=== PATIENT | female | born 1965 | race Caucasian/White ===

== ENCOUNTER 2017-07-14 18:52 | Emergency (ER) | payer BC, OTHER ==
[~2017-07-14 18:52] MED LIST: ISOVUE-370 76%-LOCM 1 ML ONE
[2017-07-14] MEDS ORDERED: Famotidine/PF 20 mg/2ml Vial ONE (19:05)
[2017-07-14 19:13] LABS: #Basophils 0.2 thou/uL (0.0-0.2); #Eosinphils 0.4 thou/uL (0.0-0.7); #Lymphocytes 4.4 thou/uL (1.20-3.40); #Monocytes 0.7 thou/uL (0.11-0.59); #Neutrophils 6.8 thou/uL (1.40-6.50); %Basophils 1.3 % (0.0-1.0); %Eosinophils 3.6 % (0.0-10.0); %Monocytes 5.7 % (0.0-10.0); Hematocrit 48.8 % (36.0-47.0); Mean Platelet Volume 7.4 fL (7.4-10.4); Red Blood Cell (RBC) Count 4.72 mill/uL (4.20-5.40); White Blood Cell (WBC) Count 12.5 thou/uL (4.8-10.8)
[2017-07-14 19:33] LABS: ALT (SGPT) 36 U/L (8-55); AST (SGOT) 38 U/L (5-34); Alkaline Phosphatase 94 U/L (40-150); Anion Gap 14 mmol/L (10-20); BUN (Urea Nitrogen) 11 mg/dL (9.8-20.1); Bilirubin, Total 0.3 mg/dL (0.2-1.2); CK (CPK) 57 U/L (29-168); Calc. Creatinine Clearance 0 mL/min (70-130); Calcium 9.6 mg/dL (7.8-10.44); Carbon Dioxide 29 mmol/L (22-29); Chloride 102 mmol/L (98-107); Estimated GFR-MDRD 88; Globulin 3.1 g/dL (2.4-3.5); Protein, Total 7.4 g/dL (6.0-8.3)
[2017-07-14 19:43] LABS: Troponin I Less than 0.010 ng/mL (< 0.028)
[2017-07-14 19:44] LABS: Sodium 140 mmol/L (135-148)
[2017-07-14 19:45] LABS: Modified Allen's Test POSITIVE; Vent NO
[2017-07-14] MEDS ORDERED: Ketorolac Tromethamine 30 MG/ML VIAL ONE (21:43)
--- NOTE | 2017-07-14 21:47 | RAD ---
PORTABLE CHEST: 07/14/17 HISTORY: Chest pain. Heart is mildly enlarged. There is mild vascular engorgement. Some interstitial prominence suggests m ild interstitial edema. No confluent alveolar process. No effusion. IMPRESSION: Cardiomegaly with mild vascular engorgement. POS: [facility]
[2017-07-14] MEDS ORDERED: Acetaminophen 500 MG TAB ONE (22:26)
--- NOTE | 2017-07-14 22:41 | CT ---
CT ANGIO OF CHEST WITH CONTRAST: 07/14/17 Multiple axial tomograms obtained through the chest with pulmonary angio protocol with multiplanar re constructions and 3D postprocessing. HISTORY: Chest pain. Hypoxia. Pulmonary arteries are well opacified. No evidence of pulmonary embolus identified. The thoracic aorta shows no evidence of dissection. Lung smith show streaky atelectasis in the left mid lung field which extends to the peripheral pleur al surface. No focal consolidation or effusion. Mediastinum unremarkable. Upper abdomen unremarkable. IMPRESSION: 1. No evidence of pulmonary embolus. 2. No acute lung process. There is linear atelectasis in the left mid lung field. POS: [facility]
--- NOTE | 2017-08-15 16:47 | EKG ---
Test Reason : Blood Pressure : / mmHG Vent. Rate : 085 BPM Atrial Rate : 085 BPM P-R Int : 152 ms QRS Dur : 082 ms QT Int : 368 ms P-R-T Axes : 035 031 020 degrees QTc Int : 437 ms Normal sinus rhythm Nonspecific T wave abnormality Abnormal ECG Confirmed by ABELINO ARNOLD, JORGE ([id number]), food editor JASS JOE ([id number]) on 08/15/2017 4:46:57 PM Referred By: Confirmed By:JORGE ROCA MD
== END 2017-07-14 22:36 | disposition home or self-care (01) ==
LOC: ERS 18:52
DX: K29.70 Gastritis, unspecified, without bleeding (principal); R06.4 Hyperventilation; E11.9 Type 2 diabetes mellitus without complications; M06.9 Rheumatoid arthritis, unspecified; E11.40 Type 2 diabetes mellitus with diabetic neuropathy, unspecified; F41.9 Anxiety disorder, unspecified; F32.9 Major depressive disorder, single episode, unspecified; Z71.6 Tobacco abuse counseling; F17.210 Nicotine dependence, cigarettes, uncomplicated; Z79.899 Other long term (current) drug therapy
CPT/HCPCS: 36416; 71010; 71275; 80053; 82550; 82553; 82805; 84484; 85025; 93005; 94760; 96374; 96375; 99406; J1885; S0028

== ENCOUNTER 2017-10-28 12:50 | Outpatient (CLI) | payer OTHER ==
--- NOTE | 2017-10-28 14:52 | MRI ---
MRI LUMBAR SPINE WITHOUT CONTRAST: COMPARISON: 04/18/16. HISTORY: Lumbar radiculopathy. TECHNIQUE: MRI lumbar spine is performed without intravenous Gadolinium administration. Multisequential, multip lanar imaging is performed. FINDINGS: Appropriate T1 marrow signal intensity of the lumbar vertebrae. Lumbar spine vertebral height is manuel ntained. No fracture. Stable Schmorl's node along the superior end plate of L2. No significant STI R hyperintensity to suggest vertebral body edema or ligamentous injury. Symmetric signal intensity of the psoas muscles. Appropriate signal intensity in visualized solid or kaitlynn. Conus medullaris terminates at the superior aspect of L2. T12-L1: No significant central canal stenosis or foraminal narrowing. L1-L2: No significant central canal stenosis or foraminal narrowing. L2-L3: No significant central canal stenosis or foraminal narrowing. L3-L4: No significant central canal stenosis or foraminal narrowing. L4-L5: No significant posterior disk abnormality. No significant central canal stenosis. Minimal a mount of disk material in the right neural foramen. Minimal right foraminal stenosis. The left neur al foramen is unremarkable. L5-S1: Desiccation with mild loss of disk space height. There is a right subarticular and right for aminal disk protrusion with disk material abutting but not completely obscuring the traversing right S1 nerve root. Mild bilateral foraminal narrowing. Degenerative changes at L5-S1 are similar to the previous examination. There is a stable small focus of disk material in the right neural foramen. Stable bilateral pars defects. IMPRESSION: Degenerative disk disease at L5-S1, unchanged. POS: [facility]
== END 2017-10-28 12:51 | disposition home or self-care (01) ==
LOC: MRI 12:50
PROVIDERS: ATTEND Family Medicine
DX: M51.17 Intervertebral disc disorders with radiculopathy, lumbosacral region (principal)
CPT/HCPCS: 72148

== ENCOUNTER 2017-12-14 19:35 | Emergency (ER) | payer OTHER ==
[2017-12-14] MEDS ORDERED: Ketorolac Tromethamine 30 MG/ML VIAL ONE (20:19)
[2017-12-14] MEDS ORDERED: Morphine 10 MG/ML VIAL ONE (20:19)
== END 2017-12-14 21:05 | disposition home or self-care (01) ==
LOC: ERS 19:35
DX: M54.5 Low back pain (principal); G89.29 Other chronic pain; J44.9 Chronic obstructive pulmonary disease, unspecified; G43.909 Migraine, unspecified, not intractable, without status migrainosus; M32.9 Systemic lupus erythematosus, unspecified; M06.9 Rheumatoid arthritis, unspecified; E11.40 Type 2 diabetes mellitus with diabetic neuropathy, unspecified; F41.9 Anxiety disorder, unspecified; F32.9 Major depressive disorder, single episode, unspecified; F17.210 Nicotine dependence, cigarettes, uncomplicated; Z79.899 Other long term (current) drug therapy
CPT/HCPCS: 96372; J1885; J2270

== ENCOUNTER 2018-01-14 15:54 | Outpatient (CLI) | payer OTHER ==
--- NOTE | 2018-01-14 17:44 | RAD ---
3 VIEWS RIGHT FOOT: Date: 01/14/18 INDICATION: History of inflammatory arthritis. COMPARISON: None. FINDINGS: There is mild scattered IP osteoarthrosis of the right foot. There is mild great toe MTP osteoarthros is. Accessory ossicle seen adjacent to the cuboid. No active periarticular erosive change is grossly evident. Enthesopathic change seen off the calcaneus. Lisfranc alignment is preserved. Soft tissues a re normal appearing. IMPRESSION: Scattered osteoarthrosis of the right foot. POS: [facility]
--- NOTE | 2018-01-14 17:45 | RAD ---
2 VIEWS RIGHT HIP: Date: 01/14/18 INDICATION: History of inflammatory arthritis. COMPARISON: None. FINDINGS: There is mild degenerative arthrosis of the right hip. Mild enthesopathic changes seen off the right greater trochanter. Mild degenerative change seen involving the symphysis. Enthesopathic change seen off the anterior pelvis. IMPRESSION: 1. No acute osseous abnormality. 2. Mild degenerative arthrosis of the right hip. POS: [facility]
--- NOTE | 2018-01-14 17:46 | RAD ---
2 VIEWS LEFT HIP: Date: 01/14/18 INDICATION: History of inflammatory arthritis. COMPARISON: None. FINDINGS: There is mild enthesopathic change off the pelvis and greater trochanter. There is mild degenerative arthrosis left hip. No acute fracture or subluxation is evident. IMPRESSION: Mild osteoarthrosis left hip. POS: [facility]
--- NOTE | 2018-01-14 17:46 | RAD ---
LEFT FOOT THREE VIEWS: INDICATIONS: History of inflammatory arthritis. COMPARISON: None. FINDINGS: No active periarticular or erosive change is evident. There is scattered IP osteoarthrosis. There i s mild great toe MTP osteoarthrosis. Enthesopathic change is seen off the calcaneus. Lisfranc align ment is preserved. Soft tissues are normal appearing. IMPRESSION: Scattered osteoarthrosis of the left foot. POS: [facility]
--- NOTE | 2018-01-14 17:48 | RAD ---
CHEST TWO VIEWS: 01/14/2018 PROVIDED CLINICAL HISTORY: Inflammatory arthritis. COMPARISON: 07/14/2017 FINDINGS: The cardiac silhouette remains enlarged. There is prominence of the pulmonary vasculature and pulmon vaishali interstitium, similar to the prior study. No focal consolidation, pleural fluid, or pneumothorax apparent. IMPRESSION: Cardiomegaly and findings suggesting pulmonary vascular congestion. POS: [facility]
--- NOTE | 2018-01-14 17:48 | RAD ---
LEFT HAND 3 VIEWS: Date: 01/14/18 PROVIDED CLINICAL HISTORY: Inflammatory arthritis. FINDINGS: There is no evidence for fracture or other acute osseous abnormality. Alignment appears anatomic. Pati nt spaces appear preserved. No erosive changes are evident. Bone mineralization appears preserved. So ft tissues appear radiographically unremarkable. IMPRESSION: No radiographic evidence for inflammatory arthritis. POS: [facility]
--- NOTE | 2018-01-14 17:49 | RAD ---
3 VIEWS RIGHT HAND: Date: 01/14/18 INDICATION: History of inflammatory arthritis. COMPARISON: Right thumb radiographs dated 10/16/15. FINDINGS: There is mild first CMC osteoarthrosis that is stable. There is scattered IP osteoarthritic change. N o active periarticular erosive change is evident. Carpal alignment appears within normal limits. Soft tissues are normal appearing. Bone mineralization appears within normal limits. IMPRESSION: Scattered osteoarthrosis of the right hand. POS: [facility]
--- NOTE | 2018-01-14 17:49 | RAD ---
RIGHT KNEE THREE VIEWS: INDICATIONS: History of inflammatory arthritis. COMPARISON: None. FINDINGS: There are marginal osteophytes affecting all major compartments. There is mild joint capsular disten tion. There is mild suggestion of medial femorotibial joint compartmental narrowing. No acute fract ure or subluxation is evident. No definite active periarticular erosive change is evident. IMPRESSION: Moderate osteoarthrosis of the right knee. POS: [facility]
--- NOTE | 2018-01-14 17:51 | RAD ---
LEFT KNEE THREE VIEWS: INDICATIONS: History of inflammatory arthritis. COMPARISON: None. FINDINGS: There are moderate sized osteophytes affecting all major compartments of the left knee. There is mil d joint capsular distention. No acute fracture or subluxation is evident. No active periarticular e rosive change is evident. IMPRESSION: Moderate osteoarthrosis of the left knee. POS: [facility]
== END 2018-01-14 15:55 | disposition home or self-care (01) ==
LOC: RAD 15:54
DX: M06.4 Inflammatory polyarthropathy (principal); M17.0 Bilateral primary osteoarthritis of knee; M19.041 Primary osteoarthritis, right hand; M19.072 Primary osteoarthritis, left ankle and foot; M19.071 Primary osteoarthritis, right ankle and foot; M16.0 Bilateral primary osteoarthritis of hip; I51.7 Cardiomegaly
CPT/HCPCS: 71046

== ENCOUNTER 2018-08-05 13:00 | Outpatient (CLI) | payer OTHER ==
--- NOTE | 2018-08-05 14:02 | RAD ---
RIGHT KNEE THREE VIEWS: 08/05/18 HISTORY: Right knee pain. FINDINGS: Mild joint space loss medial compartment. Moderate tricompartmental osteophytosis. Small amount of fl uid distends the suprapatellar bursa. IMPRESSION: Osteoarthritic changes right knee with joint space loss at the medial compartment and a small effusio n. POS: [facility]
--- NOTE | 2018-08-06 08:07 | CT ---
CT CHEST WITH IV CONTRAST: 08/05/18 HISTORY: Lung nodules. COMPARISON: 07/14/17. FINDINGS: Lungs are well inflated. No focal parenchymal mass. No pleural fluid or mediastinal adenopathy. No ev idence of pneumothorax. IMPRESSION: No evidence of lung nodules or other significant abnormalities. POS: [facility]
== END 2018-08-05 13:01 | disposition home or self-care (01) ==
LOC: BICCT 13:00
PROVIDERS: ATTEND Family Medicine
DX: M25.561 Pain in right knee (principal); R91.8 Other nonspecific abnormal finding of lung field; M17.11 Unilateral primary osteoarthritis, right knee; M25.461 Effusion, right knee; M25.861 Other specified joint disorders, right knee
CPT/HCPCS: 71260

== ENCOUNTER 2019-01-23 11:09 | Emergency (ER) | payer OTHER ==
[2019-01-23] MEDS ORDERED: HYDROcodone/Acetaminophen 5/325 mg Tablet ONE (11:51)
== END 2019-01-23 11:58 | disposition home or self-care (01) ==
LOC: ERS 11:09
DX: L03.211 Cellulitis of face (principal); J44.9 Chronic obstructive pulmonary disease, unspecified; E11.9 Type 2 diabetes mellitus without complications; F41.9 Anxiety disorder, unspecified; F32.9 Major depressive disorder, single episode, unspecified; F17.210 Nicotine dependence, cigarettes, uncomplicated; Z79.899 Other long term (current) drug therapy
CPT/HCPCS: 99283

== ENCOUNTER 2019-08-28 15:07 | Inpatient (IN) | payer OTHER ==
[~2019-08-28 15:07] MED LIST changes: -ISOVUE-370 76%-LOCM 1 ML ONE; +Iopamidol-370 76% 500 ML 1 ML ONE
[2019-08-28 15:28] LABS: #Lymphocytes 2.3 thou/uL (1.20-3.40); #Neutrophils 6.4 thou/uL (1.40-6.50); %Basophils 0.5 % (0.0-1.0); %Eosinophils 0.1 % (0.0-10.0); %Lymphocytes 23.9 % (21.0-51.0); %Monocytes 10.1 % (0.0-10.0); %Neutrophils 65.4 % (42.0-75.0); Hemoglobin 14.2 g/dL (12.0-16.0); Mean Corpuscular HGB CONC 33.4 g/dL (32.0-36.0); Mean Corpuscular Hemoglobin 33.8 pg (27.0-31.0); Mean Platelet Volume 9.8 fL (7.4-10.4); Platelet Count 164 thou/uL (130-400); RBC Distribution Width 13.3 % (11.5-14.5); Red Blood Cell (RBC) Count 4.21 mill/uL (4.20-5.40); White Blood Cell (WBC) Count 9.8 thou/uL (4.8-10.8)
[2019-08-28] MEDS ORDERED: Magnesium 2 GM/50 ML BAG (IN WATER) ONE (15:38)
[2019-08-28] MEDS ORDERED: methylPREDNISolone Sod Succ/PF 125 MG/2 ML VIAL ONE (15:38)
[2019-08-28 15:50] LABS: ALT (SGPT) 59 U/L (8-55); AST (SGOT) 56 U/L (5-34); Albumin 3.8 g/dL (3.5-5.0); Alkaline Phosphatase 89 U/L (40-110); Anion Gap 13 mmol/L (10-20); BUN (Urea Nitrogen) 6 mg/dL (9.8-20.1); Bilirubin, Total 0.7 mg/dL (0.2-1.2); CK (CPK) 542 U/L (29-168); Calc. Creatinine Clearance 0 mL/min (70-130); Calcium 8.3 mg/dL (7.8-10.44); Carbon Dioxide 29 mmol/L (22-29); Chloride 100 mmol/L (98-107); Estimated GFR-MDRD Greater than 90; Glucose 131 mg/dL (70-105); Potassium 3.2 mmol/L (3.5-5.1); Protein, Total 6.8 g/dL (6.0-8.3); Sodium 139 mmol/L (136-145)
--- NOTE | 2019-08-28 15:54 | RAD ---
XR Chest 1 View Portable HISTORY: Shortness of breath COMPARISON: 07/14/2017 FINDINGS: The heart size is enlarged. The lungs are expanded with pulmonary vascular congestion and p atchy infiltrates. No pneumothoraces or large effusions are seen.
[2019-08-28 16:06] LABS: Magnesium 1.5 mg/dL (1.6-2.6)
[2019-08-28 17:04] LABS: Bacteria/HPF 1+ HPF (None Seen); Bilirubin 1+ (Negative); Blood, Urine Trace (Negative); Clarity Clear (Clear); Glucose, Urine (Dipstick) Normal (Negative); Leukocyte Negative Leu/uL (Negative); Nitrite Negative (Negative); Protein, Urine (Dipstick) 300 mg/dL (Neg-Trace); RBC/HPF 0-3 HPF (0-3); Squamous Epithelial 0-3 HPF (0-3); Urobilinogen Greater than 12 mg/dL (Less than 2); WBC/HPF 0-3 HPF (0-3)
[2019-08-28] MEDS ORDERED: Oseltamivir 75 MG CAP PO SCH (18:00)
[2019-08-28] MEDS ORDERED: Acetaminophen 500 MG TAB ONE (18:06)
--- NOTE | 2019-08-28 18:12 | CT ---
CT ANGIO CHEST PERFORMED WITH INTRAVENOUS CONTRAST ENHANCEMENT AND 3D RECONSTRUCTIONS: Date: 08/28/19 HISTORY: Flu-like symptoms. COMPARISON: Chest x-ray done earlier today. FINDINGS: Patchy bilateral ground-glass infiltrates are seen. Appearance is more suggestive of a viral-type pne umonitis than pulmonary edema. There are no pleural effusions seen. No significant axillary or hilar adenopathy. There are some slightly prominent prevascular nodes, non specific, and these may be reactive. The thoracic aorta is normal in caliber. There is fairly good pulmonary artery opacification and no C T evidence for pulmonary embolus. Gallbladder has been removed. Visualized liver parenchyma shows no focal findings. IMPRESSION: 1. No CT evidence of pulmonary embolus. 2. Patchy ground-glass infiltrates, most suggestive of a diffuse viral-type pneumonitis. POS: [facility]
[2019-08-28] MEDS ORDERED: Ondansetron PF 4 MG/2 ML Vial ONE (19:37)
[2019-08-28 19:58] VITALS: BMI 48.4
[2019-08-28] MEDS ORDERED: Lactated Ringer's 1,000 ML IV SCH (20:30)
[2019-08-29] MEDS ORDERED: Acetaminophen/Codeine 30-300mg Tablet PO PRN (01:44)
[2019-08-29] MEDS ORDERED: Benzonatate 100 MG CAP PO PRN ×2 (01:44→03:44)
[2019-08-29] MEDS ORDERED: HumaLOG 300 UNITS/3 ML VIAL SC PRN (03:44)
[2019-08-29] MEDS ORDERED: Ondansetron ODT 4 MG TAB PO PRN (03:44)
[2019-08-29] MEDS ORDERED: Acetaminophen 325 MG TAB PO PRN (03:44)
[2019-08-29] MEDS ORDERED: Dextrose 50% Abboject 50 ML SYRINGE SLOW IVP PRN (03:44)
[2019-08-29] MEDS ORDERED: Ondansetron PF 4 MG/2 ML Vial IVP PRN (03:44)
[2019-08-29] MEDS ORDERED: Dextrose 5% in Water 1,000 ML IV PRN (03:44)
[2019-08-29] MEDS ORDERED: Azithromycin 500 MG in Sodium Chloride 0.9% 250 ML 250 ML IVPB SCH (04:00)
[2019-08-29] MEDS: HumaLOG 300 UNITS/3 ML VIAL SC PRN ×2 (04:15→17:41)
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
[2019-08-29] MEDS: Enoxaparin Sodium 40 MG/0.4 ML SYRINGE SC SCH (07:52)
[2019-08-29] MEDS ORDERED: Loperamide HCl 2 MG CAP PO PRN (08:13)
[2019-08-29] MEDS ORDERED: Sodium Chloride 0.65% Nasal 44 ML BOT EA NARE PRN (08:13)
[2019-08-29] MEDS ORDERED: Diabetic Tussin 200 MG/10 ML UDCUP PO PRN (08:13)
[2019-08-29] MEDS ORDERED: Zolpidem Tartrate 5 MG TAB PO PRN (08:13)
[2019-08-29] MEDS ORDERED: hydrALAZINE 20 MG/ML VIAL SLOW IVP PRN (08:13)
[2019-08-29] MEDS ORDERED: Senokot S 8.6-50 MG TAB PO PRN (08:13)
[2019-08-29] MEDS ORDERED: Artificial Tears 18 DROP/0.9 ML EA EYE PRN (08:13)
[2019-08-29] MEDS ORDERED: Loratadine 10 MG TAB PO PRN (08:13)
[2019-08-29] MEDS ORDERED: Cepastat Lozenges 1 LOZ PO PRN (08:13)
[2019-08-29] MEDS ORDERED: Bisacodyl 10 MG SUPP PR PRN (08:13)
[2019-08-29] MEDS ORDERED: Magnesium Sulfate 3 GM in Sodium Chloride 0.9% 100 ML IVPB SCH (08:15)
[2019-08-29] MEDS ORDERED: Potassium Chloride 20 MEQ TAB PO SCH (08:15)
[2019-08-29] MEDS ORDERED: Cyclobenzaprine 10 MG TAB PO SCH (09:00)
[2019-08-29] MEDS ORDERED: Gabapentin 400 MG CAP PO SCH (09:00)
[2019-08-29] MEDS ORDERED: Folic Acid 1 MG TAB PO SCH (09:00)
[2019-08-29] MEDS ORDERED: Prevnar 13-Val Conj/PF 0.5 ML SYRINGE IM ONE (09:00)
--- NOTE | 2019-08-29 10:53 | PDOC.HOSPP ---
- Subjective Encounter Date: 08/29/19 Encounter Time: 09:00 Subjective: pt has dyspnea, hypoxia, cough, feels weak, Patient seen and examined. No overnight events - Objective Vital Signs & Weight: Vital Signs (12 hours) Temp Pulse Resp BP Pulse Ox 08/29/19 10:22 91 16 92 L 08/29/19 08:00 98.0 F 87 22 H 163/76 H 100 08/29/19 04:01 98.2 F 88 22 H 107/57 L 91 L 08/29/19 02:28 88 16 95 08/28/19 23:58 98.2 F 88 22 H 143/75 H 91 L Weight Weight 256 lb 4.8 oz Result Diagrams: 08/28/19 15:16 08/28/19 15:16 Additional Labs: Accuchecks 08/29/19 04:01 POC Glucose 236 H Radiology Reviewed by me: Yes Hospitalist ROS - Review of Systems Constitutional: reports: weakness, malaise. denies: fever, chills, sweats, other ENT: denies: ear pain, ear discharge, nose pain, nose discharge, nose congestion , mouth pain, mouth swelling, throat pain, throat swelling, other Respiratory: reports: cough, shortness of breath, SOB with excertion. denies: dry, hemoptysis, pleuritic pain, sputum, wheezing, other Cardiovascular: denies: chest pain, palpitations, orthopnea, paroxysmal noc. dyspnea, edema, light headedness, other Gastrointestinal: denies: nausea, vomiting, abdominal pain, diarrhea, constipation, melena, hematochezia, other Genitourinary: denies: dysuria, frequency, incontinence, hematuria, retention, other Musculoskeletal: denies: neck pain, shoulder pain, arm pain, back pain, hand pain, leg pain, foot pain, other Skin: denies: rash, lesions, susan, bruising, other - Medication Medications: Active Medications Generic Name Dose Route Start Last Admin Trade Name Freq PRN Reason Stop Dose Admin Enoxaparin Sodium 40 mg 08/29/19 09:00 08/29/19 07:52 Lovenox SC 40 mg 0900 EDUARDO Administration Insulin Human Lispro 0 units 08/29/19 03:44 08/29/19 04:15 Humalog SC 4 unit .MODERATE SLIDING SC PRN Administration Moderate Correctional Scale - Exam General Appearance: NAD, awake alert Eye: PERRL, anicteric sclera ENT: normocephalic atraumatic, no oropharyngeal lesions Neck: supple, symmetric, no JVD, no thyromegaly Heart: RRR, no murmur, no gallops, no rubs Respiratory: rales Respiratory - other findings: scattered rales, reduced air entry Gastrointestinal: soft, non-tender, non-distended, normal bowel sounds Gastrointestinal - other findings: obesity+ Extremities: no cyanosis, no clubbing, no edema Skin: normal turgor, no lesions Neurological: no focal deficits Musculoskeletal: normal tone, normal strength Psychiatric: normal affect, normal behavior Hosp A/P (1) Acute respiratory failure with hypoxia Code(s): J96.01 - ACUTE RESPIRATORY FAILURE WITH HYPOXIA Status: Acute (2) Hypokalemia Code(s): E87.6 - HYPOKALEMIA Status: Acute (3) Hypomagnesemia Code(s): E83.42 - HYPOMAGNESEMIA Status: Acute (4) Pneumonia Code(s): J18.9 - PNEUMONIA, UNSPECIFIED ORGANISM Status: Acute (5) Transaminitis Code(s): R74.0 - NONSPEC ELEV OF LEVELS OF TRANSAMNS & LACTIC ACID DEHYDRGNSE Status: Acute (6) Macrocytosis Code(s): D75.89 - OTHER SPECIFIED DISEASES OF BLOOD AND BLOOD-FORMING ORGANS Status: Chronic (7) Morbid obesity with BMI of 45.0-49.9, adult Code(s): E66.01 - MORBID (SEVERE) OBESITY DUE TO EXCESS CALORIES; Z68.42 - BODY MASS INDEX (BMI) 45.0-49.9, ADULT Status: Chronic (8) Rheumatoid arthritis Code(s): M06.9 - RHEUMATOID ARTHRITIS, UNSPECIFIED Status: Chronic (9) SLE (systemic lupus erythematosus) Code(s): M32.9 - SYSTEMIC LUPUS ERYTHEMATOSUS, UNSPECIFIED Status: Chronic - Plan old records reviewed/req, plan discussed w/ family, continue antibiotics, respiratory therapy 08/29/19, will do ABG, will consult pulmonary, add solumedrom 40 mg IV q 8 hourly , change antibiotic to IV levaquin and pharmacy to adjust vancomycin, replace potassium and magnesium, discussed with , monitor oxygen level, add mucinex 600 mg po bid, add duoneb, will closely monitor, medication reviewed.
[2019-08-29 11:31] LABS: Actual Bicarbonate (HCO3a) 25.3 mEq/L (22-28); Base Excess (BEa) 0.1 mEq/L (-2.0 to +3.0); CO2 Tension 42.9 mmHg (35.0-45.0); Calcium, Ionized 1.13 mmol/L (1.12-1.30); Hemoglobin (Hb) 13.7 g/dL (12.0-16.0); Potassium - ABG Lab 3.41 mmol/L (3.70-5.30); pH, Arterial 7.39 (7.35-7.45)
[2019-08-29] MEDS: DULoxetine 30 MG CAP PO SCH ×2 (11:41→21:32)
[2019-08-29] MEDS: Famotidine 20 MG TAB PO SCH ×2 (11:42→21:32)
[2019-08-29 11:50] LABS: ALV-art Gradient -68.105 (0-20); Puncture Site RRA
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
[2019-08-29] MEDS: ALPRAZolam 1 MG TAB PO PRN ×2 (13:10→21:33)
[2019-08-29] MEDS: Vancomycin HCl 1 GM in Premix Bag 1 BAG IVPB SCH (13:11)
[2019-08-29] MEDS: methylPREDNISolone Sod Succ/PF 125 MG/2 ML VIAL IVP SCH ×2 (13:12→21:33)
[2019-08-29] MEDS: guaiFENesin ER 600 MG TAB PO SCH (21:32)
[2019-08-29] MEDS: Doxycycline 100 MG CAP PO SCH (21:32)
[2019-08-29] MEDS: traZODone HCl 50 MG TAB PO SCH (21:32)
[2019-08-29] MEDS: HYDROcodone/Acetaminophen 5/325 mg Tablet PO PRN (21:35)
[2019-08-30] MEDS: Vancomycin HCl 1 GM in Premix Bag 1 BAG IVPB SCH ×2 (00:09→12:11)
[2019-08-30 03:23] LABS: #Lymphocytes 1.4 thou/uL (1.20-3.40); #Monocytes 0.7 thou/uL (0.11-0.59); #Neutrophils 11.7 thou/uL (1.40-6.50); %Basophils 0.2 % (0.0-1.0); %Eosinophils 0.1 % (0.0-10.0); %Lymphocytes 10.3 % (21.0-51.0); %Monocytes 4.8 % (0.0-10.0); %Neutrophils 84.6 % (42.0-75.0); Hemoglobin 13.5 g/dL (12.0-16.0); Mean Corpuscular HGB CONC 33.8 g/dL (32.0-36.0); Mean Corpuscular Hemoglobin 34.4 pg (27.0-31.0); Mean Platelet Volume 9.3 fL (7.4-10.4); Platelet Count 173 thou/uL (130-400); RBC Distribution Width 13.3 % (11.5-14.5); Red Blood Cell (RBC) Count 3.91 mill/uL (4.20-5.40); White Blood Cell (WBC) Count 13.9 thou/uL (4.8-10.8)
[2019-08-30 03:47] LABS: ALT (SGPT) 45 U/L (8-55); AST (SGOT) 43 U/L (5-34); Albumin 3.5 g/dL (3.5-5.0); Alkaline Phosphatase 84 U/L (40-110); Anion Gap 13 mmol/L (10-20); BUN (Urea Nitrogen) 12 mg/dL (9.8-20.1); Bilirubin, Total 0.6 mg/dL (0.2-1.2); Calc. Creatinine Clearance 173 mL/min (70-130); Calcium 8.5 mg/dL (7.8-10.44); Carbon Dioxide 30 mmol/L (22-29); Chloride 101 mmol/L (98-107); Estimated GFR-MDRD 89; Globulin 3.1 g/dL (2.4-3.5); Glucose 178 mg/dL (70-105); Potassium 4.6 mmol/L (3.5-5.1); Protein, Total 6.6 g/dL (6.0-8.3); Sodium 139 mmol/L (136-145)
[2019-08-30] MEDS: methylPREDNISolone Sod Succ/PF 125 MG/2 ML VIAL IVP SCH (05:31)
[2019-08-30] MEDS: HumaLOG 300 UNITS/3 ML VIAL SC PRN ×2 (05:31→17:21)
[2019-08-30] MEDS: Famotidine 20 MG TAB PO SCH ×2 (08:30→20:22)
[2019-08-30] MEDS: Doxycycline 100 MG CAP PO SCH ×2 (08:30→20:22)
[2019-08-30] MEDS: guaiFENesin ER 600 MG TAB PO SCH ×2 (08:30→20:22)
[2019-08-30] MEDS: Enoxaparin Sodium 40 MG/0.4 ML SYRINGE SC SCH (08:30)
[2019-08-30] MEDS: DULoxetine 30 MG CAP PO SCH ×2 (09:00→20:22)
--- NOTE | 2019-08-30 09:21 | PRG ---
DATE OF SERVICE: 08/30/2019 SUBJECTIVE: Su Pelletier, this morning, feels much better, less agitated, less short of breath. OBJECTIVE: VITAL SIGNS: Temperature 97, pulse 67, saturations 93% on BiPAP, blood pressure 124/66. CHEST: Decreased breath sounds. No wheezing. CARDIAC: Normal S1, S2. No gallops. ABDOMEN: No mass. LABORATORY DATA: Lytes are normal. White count 13,000. She is now coughing some yellow sputum. IMPRESSION: Respiratory failure, bilateral bronchopneumonia, community-acquired, baseline immunocompromised, lupus, polymyalgia, rheumatoid arthritis. Continue steroids. Continue antibiotics. Await sputum cultures. Nocturnal BiPAP. We will follow. Job ID: [id number]
--- NOTE | 2019-08-30 09:52 | RAD ---
EXAM: Portable chest PROVIDED CLINICAL HISTORY: Pneumonia COMPARISON: 08/28/2019 FINDINGS: Interval increase in conspicuity of diffuse patchy bilateral airspace disease. Additional significant interval change with respect to the prior examination is not apparent. IMPRESSION: As above.
[2019-08-30] MEDS: HYDROcodone/Acetaminophen 5/325 mg Tablet PO PRN ×2 (12:14→20:23)
--- NOTE | 2019-08-30 15:05 | PQF ---
CLINICAL DOCUMENTATION IMPROVEMENT CLARIFICATION FORM: ICD-10 Updated PLEASE DO AN ADDENDUM TO THE PROGRESS NOTE WITH ANY DOCUMENTATION UPDATES OR ADDITIONS AND CARRY THROUGH TO DC SUMMARY. THANK YOU. DATE: 08/30/19 ATTN : DR. BROOKE Please exercise your independent, professional judgment in responding to the clarification form. Clinical indicators are provided on the bottom of this form for your review Please check appropriate box(es): [ x ] Sepsis due to: (Pna, UTI, gangrenous gall bladder, etc.) [ ] SIRS due to non-infectious process (please specify etiology) [ ] with organ dysfunction [ ] without organ dysfunction [ ] Severe sepsis with acute organ dysfunction of: (Examples: respiratory failure, encephalopathy, acute kidney failure, other) [ ] Septic Shock [ ] Localized infection without sepsis [ ] Other diagnosis [ ] Unable to determine In addition, please specify: Present on Admission (POA): [ x ] Yes [ ] No [ ] Unable to determine For continuity of documentation, please document condition throughout progress notes and discharge summary. Thank You. CLINICAL INDICATORS - SIGNS / SYMPTOMS / LABS / RESULTS AND LOCATION IN MR ER NOTE: "SEPSIS" WBC 08/30: 13.9 TEMP 101.3 (PER ER REPORT) RR 26 RISKS: PNEUMONIA (PROGRESS NOTE 08/29) IMMUNOCOMPROMISED (PROGRESS NOTE 08/30) TREATMENT: IV VANCOMYCIN (ER-PRESENT) IV LEVAQUIN (ER-PRESENT) VIBRAMYCIN (08/29-PRESENT) IV FLUIDS (ER) BLOOD AND URINE CULTURES 08/28 IMCU MONITORING (This form is maintained as a part of the permanent medical record) 2014 [employer]. All Rights Reserved [email or web address] Office: [phone] [facility]
--- NOTE | 2019-08-30 19:53 | PDOC.HOSPP ---
- Subjective Encounter Date: 08/30/19 Encounter Time: 19:45 Subjective: f/u for sepsis due to PNA on current Doxycycline/Levaquin/Vancomycin/ Solumedrol. - Objective Vital Signs & Weight: Vital Signs (12 hours) Temp Pulse Resp Pulse Ox 08/30/19 19:45 98.6 F 08/30/19 18:39 78 20 96 08/30/19 16:00 97.4 F L 08/30/19 10:37 97.0 F L 08/30/19 08:00 94 L 08/30/19 07:54 67 20 93 L Weight Weight 255 lb Most Recent Monitor Data Heart Rate from ECG 93 NIBP 132/86 NIBP BP-Mean 101 Respiration from ECG 25 SpO2 78 I&O: 08/29/19 08/30/19 08/31/19 06:59 06:59 06:59 Intake Total 2020 Output Total 350 550 Balance 1670 -550 Result Diagrams: 08/30/19 03:10 08/30/19 03:10 Additional Labs: Accuchecks 08/30/19 08/30/19 08/30/19 16:04 10:19 05:33 POC Glucose 182 H 161 H 172 H 08/29/19 20:19 POC Glucose 138 H Microbiology 08/28/19 17:53 Nasopharyngeal swab Respiratory Virus Panel (PCR) - Final 08/28/19 17:53 Nasal swab Influenza Types A,B Direct EIA - Final 08/28/19 16:20 Urine clean catch Urine Culture - Final 08/28/19 18:14 Venous blood - Right Hand Blood Culture - Preliminary NO GROWTH AT 48 HOURS 08/28/19 18:14 Venous blood - Left Hand Blood Culture - Preliminary NO GROWTH AT 48 HOURS Laboratory Tests 08/28/19 08/28/19 08/28/19 15:16 15:16 15:35 WBC 9.8 MCV 101.0 H Magnesium 1.5 L TSH 3rd Generation 2.2105 Radiology Reviewed by me: Yes (PCXR - patchy infiltrates bilat) EKG Reviewed by me: Yes (Tele - SR) Hospitalist ROS - Medication Medications: Active Medications Generic Name Dose Route Start Last Admin Trade Name Freq PRN Reason Stop Dose Admin Hydrocodone Bitart/Acetaminophen 1 tab 08/29/19 08:13 08/30/19 12:14 [place] 5/325 PO 1 tab Q4H PRN Administration Moderate Pain (4-6) Albuterol/Ipratropium 3 ml 08/29/19 13:00 08/30/19 18:39 Duoneb NEB 3 ml [id number] EDUARDO Administration Alprazolam 1 mg 08/29/19 08:13 08/29/19 21:33 Xanax PO 1 mg TID PRN Administration Anxiety Doxycycline Hyclate 100 mg 08/29/19 21:00 08/30/19 08:30 Vibramycin PO 100 mg BID EDUARDO Administration Duloxetine HCl 30 mg 08/29/19 09:00 08/30/19 09:00 Cymbalta PO 30 mg BID EDUARDO Administration Enoxaparin Sodium 40 mg 08/29/19 09:00 08/30/19 08:30 Lovenox SC 40 mg 0900 EDUARDO Administration Famotidine 20 mg 08/29/19 09:00 08/30/19 08:30 Pepcid PO 20 mg BID EDUARDO Administration Guaifenesin 600 mg 08/29/19 21:00 08/30/19 08:30 Mucinex PO 600 mg Q12HR EDUARDO Administration Levofloxacin 750 mg/ Device 150 mls @ 100 mls/hr 08/29/19 12:00 08/30/19 12: 10 IVPB 150 mls 1200 EDUARDO Administration Vancomycin HCl 1 gm/ Device 200 mls @ 200 mls/hr 08/29/19 12:00 08/30/19 12: 11 IVPB 200 mls 1200,2359 EDUARDO Administration Insulin Human Lispro 0 units 08/29/19 03:44 08/30/19 17:21 Humalog SC 2 unit .MODERATE SLIDING SC PRN Administration Moderate Correctional Scale Trazodone HCl 100 mg 08/29/19 21:00 08/29/19 21:32 Desyrel PO 100 mg HS EDUARDO Administration - Exam General Appearance: NAD, awake alert Eye: PERRL, anicteric sclera ENT: normocephalic atraumatic, no oropharyngeal lesions Neck: supple, symmetric, no JVD, no thyromegaly Heart: RRR, no murmur, no gallops, no rubs Respiratory - other findings: diminished in bases, scattered rhonchi Gastrointestinal: soft, non-tender, non-distended, normal bowel sounds, no palpable masses Extremities: no cyanosis, no clubbing, no edema Skin: normal turgor, no lesions Neurological: cranial nerve grossly intact, no new deficit Musculoskeletal: normal tone, normal strength Psychiatric: normal affect, A&O x 3 Hosp A/P (1) Bacterial pneumonia Code(s): J15.9 - UNSPECIFIED BACTERIAL PNEUMONIA Status: Acute Plan: Bilateral involvement, continue IV Levaquin/Vancomycin/Doxycycline, O2 support, Duonebs (2) Acute respiratory failure with hypoxia Code(s): J96.01 - ACUTE RESPIRATORY FAILURE WITH HYPOXIA Status: Acute Plan: See above, continue Solumedrol IV, continue high-flow NC (3) Immunocompromised Code(s): D89.9 - DISORDER INVOLVING THE IMMUNE MECHANISM, UNSPECIFIED Status: Chronic Plan: Methotrexate on hold (4) Hypokalemia Code(s): E87.6 - HYPOKALEMIA Status: Acute Plan: Resolved (5) SLE (systemic lupus erythematosus) Code(s): M32.9 - SYSTEMIC LUPUS ERYTHEMATOSUS, UNSPECIFIED Status: Chronic - Plan continue antibiotics, social work case manager, respiratory therapy, DVT proph w/SCDs Continue IV Levaquin/Vancomycin Continue Doxycycline Continue Duonebs Wean off Solumedrol as clinically indicated Continue High-flow NC BiPAP NIMV PRN
[2019-08-30] MEDS: traZODone HCl 50 MG TAB PO SCH (20:22)
[2019-08-30] MEDS: methylPREDNISolone Sod Succ 40 MG VIAL IVP SCH (20:22)
[2019-08-30] MEDS: ALPRAZolam 1 MG TAB PO PRN (20:23)
[2019-08-30 23:43] LABS: Vancomycin, Trough 7.3 ug/mL
[2019-08-31] MEDS: Vancomycin HCl 1 GM in Premix Bag 1 BAG IVPB SCH (00:12)
[2019-08-31] MEDS: Vancomycin HCl 1.75 GM in Sodium Chloride 0.9% 500 ML IVPB SCH ×2 (00:17→13:47)
[2019-08-31] MEDS: HumaLOG 300 UNITS/3 ML VIAL SC PRN ×3 (05:57→17:19)
[2019-08-31] MEDS: HYDROcodone/Acetaminophen 5/325 mg Tablet PO PRN ×2 (06:07→20:38)
[2019-08-31] MEDS: Famotidine 20 MG TAB PO SCH ×2 (09:09→20:38)
[2019-08-31] MEDS: Doxycycline 100 MG CAP PO SCH ×2 (09:09→20:38)
[2019-08-31] MEDS: DULoxetine 30 MG CAP PO SCH ×2 (09:09→20:38)
[2019-08-31] MEDS: Enoxaparin Sodium 40 MG/0.4 ML SYRINGE SC SCH (09:09)
[2019-08-31] MEDS: methylPREDNISolone Sod Succ 40 MG VIAL IVP SCH ×2 (09:09→20:39)
[2019-08-31] MEDS: guaiFENesin ER 600 MG TAB PO SCH ×2 (09:09→20:38)
[2019-08-31] MEDS: ALPRAZolam 1 MG TAB PO PRN ×2 (09:16→20:38)
--- NOTE | 2019-08-31 09:32 | PRG ---
DATE OF SERVICE: 08/31/2019 SUBJECTIVE: This morning, she is better, less cough, less shortness of breath. OBJECTIVE: VITAL SIGNS: Saturations 100% on BiPAP, temp is 97, blood pressure _130\74, pulse 80. Blood cultures are negative. CHEST: No wheezing or crackles. CARDIAC: Normal S1, S2. No gallops. ABDOMEN: No masses. LABORATORY AND DIAGNOSTIC DATA: Lytes are normal. White count of 13,000. H and H unremarkable. IMPRESSION: Respiratory failure, pneumonia, rule out superimposed congestive heart failure, morbid obesity, probably sleep apnea. PLAN: Probably discontinue vancomycin today if all cultures are negative. Await results of the echo. PT, supportive care. We will follow in micu. Job ID: [id number] MTDD
--- NOTE | 2019-08-31 10:41 | RAD ---
AP CHEST: Date: 08/31/2019 INDICATION: Pneumonia follow-up. COMPARISON: 08/30/2019. FINDINGS: Borderline cardiomegaly is stable. There is mild vascular engorgement. Hazy diffuse bilateral alveola r infiltrates are again seen. Overall, density and appearance appears improved when compared to yeste rday, although some of this may be differences in exposure. IMPRESSION: Bilateral infiltrates. There is evidence of improvement when compared to yesterday. POS: [facility]
--- NOTE | 2019-08-31 15:09 | PDOC.HOSPP ---
- Subjective Encounter Date: 08/31/19 Encounter Time: 15:00 Subjective: f/u for acute resp failure, PNA on current Doxycycline/Vanc/Levaquin. Off BiPAP today and maintaining saturations with NC. Overall feels improved. - Objective Vital Signs & Weight: Vital Signs (12 hours) Temp Pulse Resp Pulse Ox 08/31/19 12:58 108 H 22 H 08/31/19 11:50 97.9 F 08/31/19 08:00 100 08/31/19 07:19 97.3 F L 08/31/19 07:02 61 08/31/19 04:05 97.4 F L Weight Weight 255 lb Most Recent Monitor Data Heart Rate from ECG 112 NIBP 121/83 NIBP BP-Mean 95 Respiration from ECG 26 SpO2 92 I&O: 08/30/19 08/31/19 09/01/19 06:59 06:59 06:59 Intake Total 2019 760 550 Output Total 350 1025 Balance 1670 -265 550 Result Diagrams: 08/30/19 03:10 08/30/19 03:10 Additional Labs: Accuchecks 08/31/19 08/31/19 08/30/19 10:33 05:56 20:24 POC Glucose 240 H 171 H 174 H 08/30/19 16:04 POC Glucose 182 H Microbiology 08/28/19 17:53 Nasopharyngeal swab Respiratory Virus Panel (PCR) - Final 08/28/19 17:53 Nasal swab Influenza Types A,B Direct EIA - Final 08/28/19 16:20 Urine clean catch Urine Culture - Final 08/28/19 18:14 Venous blood - Right Hand Blood Culture - Preliminary NO GROWTH AT 48 HOURS 08/28/19 18:14 Venous blood - Left Hand Blood Culture - Preliminary NO GROWTH AT 48 HOURS Laboratory Tests 08/28/19 08/28/19 08/28/19 15:16 15:16 15:35 WBC 9.8 MCV 101.0 H Magnesium 1.5 L TSH 3rd Generation 2.2105 Radiology Reviewed by me: Yes (PCXR - decreased infiltrates) EKG Reviewed by me: Yes (Tele - sinus tachycardia) Hospitalist ROS - Medication Medications: Active Medications Generic Name Dose Route Start Last Admin Trade Name Freq PRN Reason Stop Dose Admin Hydrocodone Bitart/Acetaminophen 1 tab 08/29/19 08:13 08/31/19 06:07 [place] 5/325 PO 1 tab Q4H PRN Administration Moderate Pain (4-6) Albuterol/Ipratropium 3 ml 08/29/19 13:00 08/31/19 12:58 Duoneb NEB 3 ml [id number] EDUARDO Administration Alprazolam 1 mg 08/29/19 08:13 08/31/19 09:16 Xanax PO 1 mg TID PRN Administration Anxiety Doxycycline Hyclate 100 mg 08/29/19 21:00 08/31/19 09:09 Vibramycin PO 100 mg BID EDUARDO Administration Duloxetine HCl 30 mg 08/29/19 09:00 08/31/19 09:09 Cymbalta PO 30 mg BID EDUARDO Administration Enoxaparin Sodium 40 mg 08/29/19 09:00 08/31/19 09:09 Lovenox SC 40 mg 0900 EDUARDO Administration Famotidine 20 mg 08/29/19 09:00 08/31/19 09:09 Pepcid PO 20 mg BID EDUARDO Administration Guaifenesin 600 mg 08/29/19 21:00 08/31/19 09:09 Mucinex PO 600 mg Q12HR EDUARDO Administration Levofloxacin 750 mg/ Device 150 mls @ 100 mls/hr 08/29/19 12:00 08/31/19 11: 45 IVPB 150 mls 1200 EDUARDO Administration Vancomycin HCl 1.75 gm/ Sodium 500 mls @ 250 mls/hr 08/31/19 01:00 08/31/19 13:47 Chloride IVPB 500 mls 0100,1300 EDUARDO Administration Insulin Human Lispro 0 units 08/29/19 03:44 08/31/19 11:44 Humalog SC 4 unit .MODERATE SLIDING SC PRN Administration Moderate Correctional Scale Methylprednisolone Sodium Succinate 40 mg 08/30/19 21:00 08/31/19 09:09 Solu-Medrol IVP 40 mg BID EDUARDO Administration Trazodone HCl 100 mg 08/29/19 21:00 08/30/19 20:22 Desyrel PO 100 mg HS EDUARDO Administration - Exam General Appearance: NAD, awake alert Eye: PERRL, anicteric sclera ENT: normocephalic atraumatic, no oropharyngeal lesions Neck: supple, symmetric, no JVD, no thyromegaly Heart: no murmur, no gallops, no rubs, normal peripheral pulses Heart - other findings: tachycardic Respiratory - other findings: diminished bilat, coarse sounds bilat Gastrointestinal: soft, non-tender, non-distended, normal bowel sounds, no palpable masses Extremities: no cyanosis, no clubbing, 1+ LE edema Skin: normal turgor, no lesions Neurological: cranial nerve grossly intact, no new deficit Musculoskeletal: normal tone, normal strength Psychiatric: normal affect, A&O x 3 Hosp A/P (1) Bacterial pneumonia Code(s): J15.9 - UNSPECIFIED BACTERIAL PNEUMONIA Status: Acute Plan: Continue current IV abx another 24h then de-escalate coverage, continue Solumedrol/Duonebs (2) Acute respiratory failure with hypoxia Code(s): J96.01 - ACUTE RESPIRATORY FAILURE WITH HYPOXIA Status: Acute Plan: See above, wean off BiPAP/high-flow mechanism as clinically appropriate (3) Immunocompromised Code(s): D89.9 - DISORDER INVOLVING THE IMMUNE MECHANISM, UNSPECIFIED Status: Chronic (4) Hypokalemia Code(s): E87.6 - HYPOKALEMIA Status: Acute Plan: Resolved (5) SLE (systemic lupus erythematosus) Code(s): M32.9 - SYSTEMIC LUPUS ERYTHEMATOSUS, UNSPECIFIED Status: Chronic - Plan continue antibiotics, PT/OT, dialysis social worker, respiratory therapy, out of bed/ ambulate, DVT proph w/SCDs Continue IV Levaquin/Vancomycin another 24h Continue Doxycycline Continue Duonebs Wean off Solumedrol as clinically indicated Wean high-flow modalities BiPAP NIMV PRN OOB/ambulate
[2019-08-31] MEDS: traZODone HCl 50 MG TAB PO SCH (20:38)
[2019-09-01] MEDS: Vancomycin HCl 1.75 GM in Sodium Chloride 0.9% 500 ML IVPB SCH (00:10)
[2019-09-01] MEDS: HumaLOG 300 UNITS/3 ML VIAL SC PRN ×2 (06:40→17:04)
[2019-09-01] MEDS: DULoxetine 30 MG CAP PO SCH ×2 (08:14→21:18)
[2019-09-01] MEDS: Doxycycline 100 MG CAP PO SCH ×2 (08:14→21:24)
[2019-09-01] MEDS: Famotidine 20 MG TAB PO SCH ×2 (08:14→21:18)
[2019-09-01] MEDS: methylPREDNISolone Sod Succ 40 MG VIAL IVP SCH (08:14)
[2019-09-01] MEDS: ALPRAZolam 1 MG TAB PO PRN (08:14)
[2019-09-01] MEDS: guaiFENesin ER 600 MG TAB PO SCH ×2 (08:14→21:18)
[2019-09-01] MEDS: Enoxaparin Sodium 40 MG/0.4 ML SYRINGE SC SCH (08:14)
[2019-09-01] MEDS: HYDROcodone/Acetaminophen 5/325 mg Tablet PO PRN ×2 (08:16→18:08)
[2019-09-01] MEDS ORDERED: Furosemide 20 MG/2 ML VIAL SLOW IVP SCH (09:15)
--- NOTE | 2019-09-01 09:24 | PRG ---
DATE OF SERVICE: 09/01/2019 SUBJECTIVE: This morning, she is better, less short of breath, and less cough. EF shows a mildly depressed EF. OBJECTIVE: VITAL SIGNS: Temperature 97, pulse rate 88, respiratory rate 19, saturations are 95%, and blood pressure 129/83. She did not wear the CPAP last night. CHEST: Decreased breath sounds and wheezing. CARDIAC: Normal S1 and S2. No gallops. ABDOMEN: No masses. IMPRESSION: Bilateral bronchopneumonia, community-acquired, probably atypical. All cultures negative. Switch over to oral medication. PT supportive care. She can be transferred out of the ICU. Disposition to home in the next several days. Job ID: [id number] MTDD
--- NOTE | 2019-09-01 15:11 | PDOC.HOSPP ---
- Subjective Encounter Date: 09/01/19 Encounter Time: 15:00 Subjective: f/u for resp failure, PNA on nocturnal BiPAP. States feeling better and tolerating NC O2 during the day without difficulty. - Objective Vital Signs & Weight: Vital Signs (12 hours) Temp Pulse Resp Pulse Ox 09/01/19 13:11 94 18 96 09/01/19 10:22 97.5 F L 09/01/19 08:30 88 23 H 94 L 09/01/19 08:00 95 09/01/19 07:23 97.8 F 09/01/19 03:25 97.7 F Weight Weight 255 lb Most Recent Monitor Data Heart Rate from ECG 110 NIBP 141/78 NIBP BP-Mean 103 Respiration from ECG 19 SpO2 89 I&O: 08/31/19 09/01/19 09/02/19 06:59 06:59 06:59 Intake Total 760 2510 250 Output Total 1025 550 Balance -265 2510 -300 Result Diagrams: 08/30/19 03:10 08/30/19 03:10 Additional Labs: Accuchecks 09/01/19 09/01/19 08/31/19 10:08 06:17 20:12 POC Glucose 259 H 167 H 156 H 08/31/19 16:41 POC Glucose 199 H Microbiology 08/28/19 17:53 Nasopharyngeal swab Respiratory Virus Panel (PCR) - Final 08/28/19 17:53 Nasal swab Influenza Types A,B Direct EIA - Final 08/28/19 16:20 Urine clean catch Urine Culture - Final 08/28/19 18:14 Venous blood - Right Hand Blood Culture - Preliminary NO GROWTH AT 48 HOURS 08/28/19 18:14 Venous blood - Left Hand Blood Culture - Preliminary NO GROWTH AT 48 HOURS Laboratory Tests 08/28/19 08/28/19 08/28/19 15:16 15:16 15:35 WBC 9.8 MCV 101.0 H Magnesium 1.5 L TSH 3rd Generation 2.2105 Radiology Reviewed by me: Yes (Echo - EF 45%, mod MR) EKG Reviewed by me: Yes (Tele - Sinus tachycardia) Hospitalist ROS - Medication Medications: Active Medications Generic Name Dose Route Start Last Admin Trade Name Freq PRN Reason Stop Dose Admin Hydrocodone Bitart/Acetaminophen 1 tab 08/29/19 08:13 09/01/19 08:16 [place] 5/325 PO 1 tab Q4H PRN Administration Moderate Pain (4-6) Albuterol/Ipratropium 3 ml 08/29/19 13:00 09/01/19 13:11 Duoneb NEB 3 ml [id number] EDUARDO Administration Alprazolam 1 mg 08/29/19 08:13 09/01/19 08:14 Xanax PO 1 mg TID PRN Administration Anxiety Doxycycline Hyclate 100 mg 08/29/19 21:00 09/01/19 08:14 Vibramycin PO 100 mg BID EDUARDO Administration Duloxetine HCl 30 mg 08/29/19 09:00 09/01/19 08:14 Cymbalta PO 30 mg BID EDUARDO Administration Enoxaparin Sodium 40 mg 08/29/19 09:00 09/01/19 08:14 Lovenox SC 40 mg 0900 EDUARDO Administration Famotidine 20 mg 08/29/19 09:00 09/01/19 08:14 Pepcid PO 20 mg BID EDUARDO Administration Guaifenesin 600 mg 08/29/19 21:00 09/01/19 08:14 Mucinex PO 600 mg Q12HR EDUARDO Administration Insulin Human Lispro 0 units 08/29/19 03:44 09/01/19 06:40 Humalog SC 2 unit .MODERATE SLIDING SC PRN Administration Moderate Correctional Scale Trazodone HCl 100 mg 08/29/19 21:00 08/31/19 20:38 Desyrel PO 100 mg HS EDUARDO Administration - Exam General Appearance: NAD, awake alert Eye: PERRL, anicteric sclera ENT: normocephalic atraumatic, no oropharyngeal lesions Neck: supple, symmetric, no JVD, no thyromegaly Heart: no gallops, no rubs, normal peripheral pulses Heart - other findings: tachycardic Respiratory - other findings: diminished bilat with occasional wheeze Gastrointestinal: soft, non-tender, non-distended, normal bowel sounds, no palpable masses Gastrointestinal - other findings: obese Extremities: no cyanosis, no clubbing, no edema Skin: normal turgor, no lesions Neurological: cranial nerve grossly intact, no new deficit Musculoskeletal: normal tone, generalized weakness Psychiatric: normal affect, A&O x 3 Hosp A/P (1) Bacterial pneumonia Code(s): J15.9 - UNSPECIFIED BACTERIAL PNEUMONIA Status: Acute Plan: Continue Doxycycline/Levaquin, Duonebs, O2 support (2) Acute respiratory failure with hypoxia Code(s): J96.01 - ACUTE RESPIRATORY FAILURE WITH HYPOXIA Status: Acute Plan: Nocturnal BiPAP, continue O2 NC during the daytime (3) Immunocompromised Code(s): D89.9 - DISORDER INVOLVING THE IMMUNE MECHANISM, UNSPECIFIED Status: Chronic (4) Hypokalemia Code(s): E87.6 - HYPOKALEMIA Status: Acute Plan: Resolved (5) SLE (systemic lupus erythematosus) Code(s): M32.9 - SYSTEMIC LUPUS ERYTHEMATOSUS, UNSPECIFIED Status: Chronic - Plan plan discussed w/ family, continue antibiotics, PT/OT, social insurance administrator, respiratory therapy, out of bed/ambulate, DVT proph w/SCDs Continue Levaquin Continue Doxycycline Continue Duonebs Start Prednisone 20mg daily Wean high-flow modalities BiPAP NIMV nocturnally OOB/ambulate Transfer to medical floor
[2019-09-01 16:09] LABS: QuantiFERON-TB Gold Plus Negative (Negative)
[2019-09-01] MEDS: traZODone HCl 50 MG TAB PO SCH (21:18)
[2019-09-02] MEDS: Famotidine 20 MG TAB PO SCH ×2 (08:34→20:29)
[2019-09-02] MEDS: predniSONE 20 MG TAB PO SCH (08:34)
[2019-09-02] MEDS: DULoxetine 30 MG CAP PO SCH ×2 (08:34→20:29)
[2019-09-02] MEDS: guaiFENesin ER 600 MG TAB PO SCH ×2 (08:34→20:29)
[2019-09-02] MEDS: Doxycycline 100 MG CAP PO SCH ×2 (08:34→20:29)
[2019-09-02] MEDS: Enoxaparin Sodium 40 MG/0.4 ML SYRINGE SC SCH (08:34)
--- NOTE | 2019-09-02 09:31 | PDOC.HOSPP ---
- Subjective Encounter Date: 09/02/19 Encounter Time: 09:25 Subjective: f/u for resp failure and bilat PNA on current Levaquin/Prednisone/Duonebs. Feels weak but ambulated about 45ft with PT today. Used BiPAP last night. - Objective Vital Signs & Weight: Vital Signs (12 hours) Temp Pulse Resp BP Pulse Ox 09/02/19 07:57 98.0 F 66 20 163/93 H 91 L 09/02/19 04:13 98.2 F 61 15 121/89 96 09/02/19 04:00 98.2 F 61 15 121/89 96 09/02/19 01:51 82 09/02/19 01:33 77 16 92 L 09/02/19 00:13 98.3 F 60 16 130/70 95 09/02/19 00:00 97.8 F 82 18 130/70 92 L Weight Weight 255 lb Most Recent Monitor Data Heart Rate from ECG 110 NIBP 161/62 NIBP BP-Mean 95 Respiration from ECG 25 SpO2 93 I&O: 09/01/19 09/02/19 09/03/19 06:59 06:59 06:59 Intake Total 2510 2050 Output Total 550 Balance 2510 1500 Result Diagrams: 08/30/19 03:10 08/30/19 03:10 Additional Labs: Accuchecks 09/02/19 09/01/19 09/01/19 04:15 19:43 16:08 POC Glucose 132 H 221 H 381 H 09/01/19 10:08 POC Glucose 259 H Microbiology 08/28/19 17:53 Nasopharyngeal swab Respiratory Virus Panel (PCR) - Final 08/28/19 17:53 Nasal swab Influenza Types A,B Direct EIA - Final 08/28/19 16:20 Urine clean catch Urine Culture - Final 08/28/19 18:14 Venous blood - Right Hand Blood Culture - Preliminary NO GROWTH AT 48 HOURS 08/28/19 18:14 Venous blood - Left Hand Blood Culture - Preliminary NO GROWTH AT 48 HOURS Laboratory Tests 08/28/19 08/28/19 08/28/19 15:16 15:16 15:35 WBC 9.8 MCV 101.0 H Magnesium 1.5 L TSH 3rd Generation 2.2105 Hospitalist ROS - Medication Medications: Active Medications Generic Name Dose Route Start Last Admin Trade Name Freq PRN Reason Stop Dose Admin Hydrocodone Bitart/Acetaminophen 1 tab 08/29/19 08:13 09/01/19 18:08 [place] 5/325 PO 1 tab Q4H PRN Administration Moderate Pain (4-6) Albuterol/Ipratropium 3 ml 08/29/19 13:00 09/02/19 01:33 Duoneb NEB 3 ml [id number] EDUARDO Administration Alprazolam 1 mg 08/29/19 08:13 09/01/19 08:14 Xanax PO 1 mg TID PRN Administration Anxiety Doxycycline Hyclate 100 mg 08/29/19 21:00 09/02/19 08:34 Vibramycin PO 100 mg BID EDUARDO Administration Duloxetine HCl 30 mg 08/29/19 09:00 09/02/19 08:34 Cymbalta PO 30 mg BID EDUARDO Administration Enoxaparin Sodium 40 mg 08/29/19 09:00 09/02/19 08:34 Lovenox SC 40 mg 0900 EDUARDO Administration Famotidine 20 mg 08/29/19 09:00 09/02/19 08:34 Pepcid PO 20 mg BID EDUARDO Administration Guaifenesin 600 mg 08/29/19 21:00 09/02/19 08:34 Mucinex PO 600 mg Q12HR EDUARDO Administration Insulin Human Lispro 0 units 08/29/19 03:44 09/01/19 17:04 Humalog SC 10 unit .MODERATE SLIDING SC PRN Administration Moderate Correctional Scale Levofloxacin 500 mg 09/02/19 06:00 09/02/19 06:02 Levaquin PO 09/06/19 06:01 500 mg 0600 EDUARDO Administration Prednisone 20 mg 09/02/19 08:00 09/02/19 08:34 Prednisone PO 09/07/19 08:01 20 mg QAM-WM EDUARDO Administration Trazodone HCl 100 mg 08/29/19 21:00 09/01/19 21:18 Desyrel PO 100 mg HS EDUARDO Administration - Exam General Appearance: NAD, awake alert Eye: PERRL, anicteric sclera ENT: normocephalic atraumatic, no oropharyngeal lesions Neck: supple, symmetric, no JVD, no thyromegaly Heart: RRR, no murmur, no gallops, no rubs, normal peripheral pulses Respiratory - other findings: diminished bilat, scattered rhonchi Gastrointestinal: soft, non-tender, non-distended, normal bowel sounds Extremities: no cyanosis, no clubbing, no edema Skin: normal turgor, no lesions Neurological: cranial nerve grossly intact, no new deficit Musculoskeletal: normal tone, generalized weakness Psychiatric: normal affect, A&O x 3 Hosp A/P (1) Bacterial pneumonia Code(s): J15.9 - UNSPECIFIED BACTERIAL PNEUMONIA Status: Acute Plan: Continue Levaquin/Duonebs/O2 support (2) Acute respiratory failure with hypoxia Code(s): J96.01 - ACUTE RESPIRATORY FAILURE WITH HYPOXIA Status: Acute Plan: Continue nocturnal BiPAP (3) Immunocompromised Code(s): D89.9 - DISORDER INVOLVING THE IMMUNE MECHANISM, UNSPECIFIED Status: Chronic (4) Hypokalemia Code(s): E87.6 - HYPOKALEMIA Status: Acute (5) SLE (systemic lupus erythematosus) Code(s): M32.9 - SYSTEMIC LUPUS ERYTHEMATOSUS, UNSPECIFIED Status: Chronic (6) COPD (chronic obstructive pulmonary disease) Status: Chronic Plan: See above for pulmonary mgmt - Plan continue antibiotics, PT/OT, director of social media marketing, respiratory therapy, out of bed/ ambulate, DVT proph w/SCDs Continue Levaquin Continue Doxycycline Continue Duonebs Start Prednisone 20mg daily Wean high-flow modalities as clinically indicated BiPAP NIMV nocturnally OOB/ambulate Transfer to medical floor
--- NOTE | 2019-09-02 10:41 | PRG ---
DATE OF SERVICE: SUBJECTIVE: Su Pelletier this morning is awake, alert, and responsive. OBJECTIVE: VITAL SIGNS: Temperature 98, pulse 60, respirations 20, saturations 92% on 4 L, blood pressure 163/93. CHEST: Decreased breath sounds. No wheezing. CARDIAC: Normal S1 and S2. No gallops. ABDOMEN: No masses. ASSESSMENT: Respiratory failure, congestive heart failure, pneumonia, and morbid obesity. PLAN/DISPOSITION: PT, supportive care, hopefully home in next several days. Job ID: [id number]
[2019-09-02] MEDS: HumaLOG 300 UNITS/3 ML VIAL SC PRN (17:54)
[2019-09-02] MEDS: traZODone HCl 50 MG TAB PO SCH (20:29)
[2019-09-02] MEDS: Cyclobenzaprine 10 MG TAB PO PRN (20:30)
[2019-09-02] MEDS: ALPRAZolam 1 MG TAB PO PRN (20:30)
[2019-09-03] MEDS: ALPRAZolam 1 MG TAB PO PRN (05:17)
[2019-09-03] MEDS: Cyclobenzaprine 10 MG TAB PO PRN (05:17)
[2019-09-03] MEDS: guaiFENesin ER 600 MG TAB PO SCH (08:21)
[2019-09-03] MEDS: Famotidine 20 MG TAB PO SCH (08:21)
[2019-09-03] MEDS: Doxycycline 100 MG CAP PO SCH (08:21)
[2019-09-03] MEDS: predniSONE 20 MG TAB PO SCH (08:22)
[2019-09-03] MEDS: Enoxaparin Sodium 40 MG/0.4 ML SYRINGE SC SCH (08:22)
[2019-09-03] MEDS: DULoxetine 30 MG CAP PO SCH (08:22)
[2019-09-03] MEDS: HumaLOG 300 UNITS/3 ML VIAL SC PRN (12:24)
--- NOTE | 2019-09-03 12:35 | PRG ---
DATE OF SERVICE: 09/03/2019 SUBJECTIVE: This morning, the patient wants to go home. She is less short of breath, less cough. She is afebrile. Culture negative. Saturations were low though, 90 on 3 L. OBJECTIVE: VITAL SIGNS: Temperature 98, pulse 53, respiratory rate blood pressure 120/53. CHEST: Clear. CARDIAC: Normal S1 and S2. No gallops. ABDOMEN: No masses. IMPRESSION: 1. Respiratory failure. 2. Pneumonia. 3. Diastolic dysfunction. 4. Severe deconditioning. 5. Sleep apnea. PLAN: Pulmonary briceno, she can be discharged home. She may very well require low-flow O2 for a period of time. Follow up with the primary care physician. Job ID: [id number]
[2019-09-03 17:23] VITALS: BP 139/86; TEMP 98.3
--- NOTE | 2019-09-03 20:06 | DIS ---
DATE OF ADMISSION: 08/28/2019 DATE OF DISCHARGE: 09/03/2019 DISCHARGE DIAGNOSES: 1. Bacterial pneumonia. 2. Acute respiratory failure with hypoxia. 3. Immunocompromise. 4. Hypokalemia. 5. Systemic lupus erythematosus lupus. 6. Chronic obstructive pulmonary disease. HOSPITAL COURSE: The patient is a very pleasant 53-year-old female, who initially presented to the hospital on 08/29 with complaint of shortness of breath. The patient's PCP is Dr. Carter Guerra. The patient at this time was started on broad-spectrum antibiotics and Pulmonary was consulted. Her Interferon Gold was checked which was negative. She was initially started on broad-spectrum antibiotic that was tapered into 2 antibiotics. She was initially in IMCU and was transitioned to a medical floor. She continued to improve. She was walked on the day of her discharge and did not require any oxygenation. She was cleared from pulmonology standpoint to be discharged home. DISCHARGE MEDICATIONS: She is going to go home with, 1. Levofloxacin and doxycycline for a total of another extra 5 days. 2. Prednisone taper. 3. Flexeril one p.o. b.i.d. 4. Xanax 1 mg p.o. t.i.d. 5. Cymbalta 30 mg b.i.d. 6. Neurontin 400 mg t.i.d. 7. She is on methotrexate every 7 days. 8. Sumatriptan 100 mg q.2 hours p.r.n. 9. Folic acid one p.o. b.i.d. PHYSICAL EXAMINATION: VITAL SIGNS: As of the following; temperature of 98.7, pulse 68, respirations 16, oxygen saturations 96% on room air, blood pressure 128/53. GENERAL: She is awake, alert, and oriented x3. Does not appear in distress. CV: S1, S2 present. No murmurs, rubs, or gallops. DISCHARGE INSTRUCTIONS: Again, she will be discharged home. She will follow up with her Primary and also with Pulmonology. Job ID: [id number]
== END 2019-09-03 17:52 | disposition home or self-care (01) | DRG 871 ==
LOC: ERS 15:07 → T4-B 18:07 → IMCU/EMU 08-29 12:20 → T4-A 09-01 17:59
PROVIDERS: ADMIT Family Medicine; ATTEND Family Medicine
DX: A41.9 Sepsis, unspecified organism (principal); J96.01 Acute respiratory failure with hypoxia; J15.9 Unspecified bacterial pneumonia; J44.0 Chronic obstructive pulmonary disease with (acute) lower respiratory infection; Z68.42 Body mass index [BMI] 45.0-49.9, adult; M06.9 Rheumatoid arthritis, unspecified; E11.9 Type 2 diabetes mellitus without complications; M79.7 Fibromyalgia; F41.9 Anxiety disorder, unspecified; F32.9 Major depressive disorder, single episode, unspecified; G25.81 Restless legs syndrome; Z88.0 Allergy status to penicillin; Z91.040 Latex allergy status; Z90.89 Acquired absence of other organs; Z88.2 Allergy status to sulfonamides; Z88.8 Allergy status to other drugs, medicaments and biological substances; Z87.891 Personal history of nicotine dependence; Z79.899 Other long term (current) drug therapy; M32.9 Systemic lupus erythematosus, unspecified; Z90.49 Acquired absence of other specified parts of digestive tract; E66.01 Morbid (severe) obesity due to excess calories; E87.6 Hypokalemia; E83.42 Hypomagnesemia; D75.89 Other specified diseases of blood and blood-forming organs; G47.00 Insomnia, unspecified; D89.9 Disorder involving the immune mechanism, unspecified
CPT/HCPCS: 36415; 36416; 71045; 71275; 80053; 80202; 81003; 81015; 82550; 82805; 83605; 83690; 83735; 83880; 84443; 85025; 85379; 86480; 87040; 87070; 87086; 87205; 87633; 87804; 90471; 90670; 93005; 93306; 94640; 94660; 96365; 96367; 96375; G0009; J0456; J1650; J1940; J1956; J2405; J2920; J2930; J3370; J3475; J3490; J7050; J7512; J7620; Q9967

== ENCOUNTER 2020-10-23 18:31 | Emergency (ER) | payer OTHER ==
--- NOTE | 2020-10-23 19:24 | RAD ---
RADIOGRAPH RIGHT HIP 2 VIEWS: 10/23/20 HISTORY: 54-year-old female with acute traumatic right hip pain after fall. FINDINGS: No displaced fracture identified. No dislocation. Mild to moderate bony hypertrophy of acetabulum. No subcapital osteophytes. Femoral head contour maintained. There is sclerosis at the SI joint. IMPRESSION: 1. No acute fracture identified. 2. Osteoarthrosis of right sacroiliac joint. 3. If symptoms do not improve, then follow-up imaging is recommended in 5 to 10 days to rule out occult fracture. POS: [facility]
[2020-10-23] MEDS ORDERED: Ketorolac Tromethamine 30 MG/ML VIAL ONE (20:00)
[2020-10-23 20:09] LABS: #Basophils 0.1 thou/uL (0.0-0.2); #Eosinphils 0.2 thou/uL (0.0-0.7); #Lymphocytes 3.8 thou/uL (1.20-3.40); #Monocytes 0.8 thou/uL (0.11-0.59); %Basophils 1.3 % (0.0-1.0); %Eosinophils 2.3 % (0.0-10.0); %Lymphocytes 37.8 % (21.0-51.0); %Monocytes 8.2 % (0.0-10.0); %Neutrophils 50.5 % (42.0-75.0); Hemoglobin 14.7 g/dL (12.0-16.0); Mean Corpuscular Hemoglobin 33.5 pg (27.0-31.0); Mean Platelet Volume 8.1 fL (7.4-10.4); Platelet Count 205 thou/uL (130-400); RBC Distribution Width 11.8 % (11.5-14.5); White Blood Cell (WBC) Count 9.9 thou/uL (4.8-10.8)
[2020-10-23 21:06] LABS: Chloride 105 mmol/L (98-107)
[2020-10-23 21:07] LABS: Calcium 8.8 mg/dL (7.8-10.44); Potassium 4.2 mmol/L (3.5-5.1); Sodium 141 mmol/L (136-145)
[2020-10-23 21:08] LABS: Globulin 2.7 g/dL (2.4-3.5); Glucose 116 mg/dL (70-105); Protein, Total 6.7 g/dL (6.0-8.3)
[2020-10-23 21:09] LABS: Anion Gap 13 mmol/L (10-20); Carbon Dioxide 27 mmol/L (22-29)
[2020-10-23 21:10] LABS: Bilirubin, Total 0.4 mg/dL (0.2-1.2)
[2020-10-23 21:11] LABS: Alkaline Phosphatase 113 U/L (40-110); Calc. Creatinine Clearance 0 mL/min (70-130)
[2020-10-23 21:12] LABS: BUN (Urea Nitrogen) 21 mg/dL (9.8-20.1)
[2020-10-23 21:13] LABS: AST (SGOT) 31 U/L (5-34)
[2020-10-23 21:14] LABS: ALT (SGPT) 41 U/L (8-55); CK (CPK) 88 U/L (29-168)
== END 2020-10-23 21:05 | disposition home or self-care (01) ==
LOC: ERS 18:31
DX: M25.551 Pain in right hip (principal); R20.0 Anesthesia of skin; E11.40 Type 2 diabetes mellitus with diabetic neuropathy, unspecified; J44.9 Chronic obstructive pulmonary disease, unspecified; M79.7 Fibromyalgia; M32.9 Systemic lupus erythematosus, unspecified; G25.81 Restless legs syndrome; M06.9 Rheumatoid arthritis, unspecified; F17.210 Nicotine dependence, cigarettes, uncomplicated; W10.9XXA Fall (on) (from) unspecified stairs and steps, initial encounter
CPT/HCPCS: 36415; 80053; 82550; 85025; 96372; J1885

== ENCOUNTER 2020-10-29 19:55 | Emergency (ER) | payer OTHER ==
[2020-10-29] MEDS ORDERED: Ketorolac Tromethamine 30 MG/ML VIAL ONE (21:16)
== END 2020-10-29 22:21 | disposition home or self-care (01) ==
LOC: ERS 19:55
DX: M25.551 Pain in right hip (principal); J44.9 Chronic obstructive pulmonary disease, unspecified; F17.210 Nicotine dependence, cigarettes, uncomplicated; M06.9 Rheumatoid arthritis, unspecified; W17.89XA Other fall from one level to another, initial encounter
CPT/HCPCS: 72170; 96374; J1885

== ENCOUNTER 2020-11-19 07:44 | Outpatient (CLI) | payer OTHER | END 2020-11-19 07:45 | disposition home or self-care (01) | LOC: TBSIIMAG 07:44 | PROVIDERS: ATTEND Orthopaedic Surgery | DX: M25.551 Pain in right hip (principal); S72.041A Displaced fracture of base of neck of right femur, initial encounter for closed fracture; S76.011A Strain of muscle, fascia and tendon of right hip, initial encounter ==

== ENCOUNTER 2020-11-29 13:33 | Inpatient (IN) | payer OTHER ==
[2020-11-29] MEDS ORDERED: Morphine 4 MG/ML VIAL ONE (15:55)
[2020-11-29] MEDS ORDERED: Dextrose 50% Abboject 50 ML SYRINGE SLOW IVP PRN (16:40)
[2020-11-29] MEDS ORDERED: Dextrose 5% in Water 1,000 ML IV PRN (16:40)
[2020-11-29] MEDS ORDERED: hydrALAZINE 20 MG/ML VIAL SLOW IVP PRN (16:40)
[2020-11-29] MEDS ORDERED: Ondansetron ODT 4 MG TAB PO PRN (16:40)
[2020-11-29] MEDS ORDERED: Clindamycin/D5W 900 MG in Premix Bag 1 BAG IVPB SCH (17:00)
[2020-11-29 17:01] LABS: #Basophils 0.1 thou/uL (0.0-0.2); #Eosinphils 0.3 thou/uL (0.0-0.7); #Lymphocytes 3.6 thou/uL (1.20-3.40); #Monocytes 0.8 thou/uL (0.11-0.59); #Neutrophils 6.1 thou/uL (1.40-6.50); %Basophils 0.8 % (0.0-1.0); %Eosinophils 2.6 % (0.0-10.0); %Lymphocytes 33.4 % (21.0-51.0); %Monocytes 7.3 % (0.0-10.0); %Neutrophils 55.9 % (42.0-75.0); Hemoglobin 14.1 g/dL (12.0-16.0); Mean Corpuscular HGB CONC 34.1 g/dL (32.0-36.0); Mean Corpuscular Hemoglobin 33.6 pg (27.0-31.0); Mean Corpuscular Volume 98.6 fL (78.0-98.0); Mean Platelet Volume 7.6 fL (7.4-10.4); Platelet Count 225 thou/uL (130-400); RBC Distribution Width 12.5 % (11.5-14.5); White Blood Cell (WBC) Count 10.9 thou/uL (4.8-10.8)
[2020-11-29] MEDS ORDERED: Ibuprofen 200 MG TAB PO PRN (17:07)
[2020-11-29 17:28] LABS: Phosphorus 6.1 mg/dL (2.3-4.7)
[2020-11-29 17:31] LABS: ALT (SGPT) 24 U/L (8-55); AST (SGOT) 27 U/L (5-34); Albumin 3.9 g/dL (3.5-5.0); Alkaline Phosphatase 124 U/L (40-110); Anion Gap 11 mmol/L (10-20); BUN (Urea Nitrogen) 24 mg/dL (9.8-20.1); Bilirubin, Total 0.4 mg/dL (0.2-1.2); Calc. Creatinine Clearance 0 mL/min (70-130); Calcium 9.2 mg/dL (7.8-10.44); Carbon Dioxide 28 mmol/L (22-29); Chloride 101 mmol/L (98-107); Globulin 3.2 g/dL (2.4-3.5); Glucose 89 mg/dL (70-105); Magnesium 1.8 mg/dL (1.6-2.6); Potassium 4.2 mmol/L (3.5-5.1); Protein, Total 7.1 g/dL (6.0-8.3); Sodium 136 mmol/L (136-145)
[2020-11-29] MEDS: Acetaminophen 500 MG TAB PO SCH ×2 (17:51→23:17)
[2020-11-29] MEDS: traMADol HCl 50 MG TAB PO SCH ×2 (17:52→23:18)
[2020-11-29] MEDS: Nicotine 14 MG PATCH TD SCH (17:52)
[2020-11-29 18:24] VITALS: BMI 46.5
[2020-11-29] MEDS: Cyclobenzaprine 10 MG TAB PO PRN (21:18)
[2020-11-29] MEDS: Famotidine 20 MG TAB PO SCH ×2 (21:18→21:20)
[2020-11-29] MEDS: Senokot S 8.6-50 MG TAB PO SCH (21:18)
[2020-11-29] MEDS: traMADol HCl 50 MG TAB PO PRN (21:19)
[2020-11-29] MEDS: Morphine 2 MG/ML VIAL SLOW IVP PRN ×2 (21:20→23:13)
[2020-11-29] MEDS: Sodium Chloride 0.9% 1,000 ML IV SCH (23:09)
[2020-11-30] MEDS: Morphine 2 MG/ML VIAL SLOW IVP PRN ×3 (02:45→14:46)
[2020-11-30] MEDS: Acetaminophen 500 MG TAB PO SCH ×5 (05:35→22:58)
[2020-11-30] MEDS: traMADol HCl 50 MG TAB PO SCH ×4 (05:35→22:56)
[2020-11-30 06:03] LABS: Phosphorus 5.9 mg/dL (2.3-4.7)
[2020-11-30 06:07] LABS: Anion Gap 14 mmol/L (10-20); BUN (Urea Nitrogen) 23 mg/dL (9.8-20.1); Calc. Creatinine Clearance 153 mL/min (70-130); Calcium 8.9 mg/dL (7.8-10.44); Carbon Dioxide 27 mmol/L (22-29); Chloride 102 mmol/L (98-107); Glucose 95 mg/dL (70-105); Magnesium 1.8 mg/dL (1.6-2.6); Potassium 4.2 mmol/L (3.5-5.1); Sodium 139 mmol/L (136-145)
[2020-11-30] MEDS: Polyethylene Glycol 3350 17 GM Packet PO SCH (07:48)
[2020-11-30 08:58] LABS: SARS-CoV-2 PCR by NAA Not Detected (NotDetected)
[2020-11-30] MEDS: Famotidine 20 MG TAB PO SCH ×3 (09:55→20:32)
[2020-11-30] MEDS ORDERED: Clindamycin/D5W 900 mg/50 ml Premix Bag ONE (10:11)
[2020-11-30] MEDS ORDERED: Fentanyl 100 MCG/2 ML VIAL ONE ×2 (10:12→11:49)
[2020-11-30] MEDS: Sodium Chloride 0.9% 1,000 ML IV SCH ×2 (10:15→22:09)
[2020-11-30] MEDS: Senokot S 8.6-50 MG TAB PO SCH ×2 (10:15→20:32)
[2020-11-30] MEDS ORDERED: PHENYLEPHRINE-NS 100 MCG/ML 10 ML SYRINGE ONE (10:22)
[2020-11-30] MEDS ORDERED: Rocuronium Bromide 10 MG/ML (10ML VIAL) ONE (10:22)
[2020-11-30] MEDS ORDERED: PROPOFOL 200 MG/20 ML VIAL ONE (10:22)
[2020-11-30] MEDS ORDERED: Lidocaine 1% PF 5 ML VIAL ONE (10:22)
[2020-11-30] MEDS ORDERED: Ondansetron HCl/PF 4 MG/2 ML Vial IVP PRN (11:48)
[2020-11-30] MEDS ORDERED: Morphine Sulfate 2 MG/ML SYRINGE SLOW IVP PRN (11:48)
[2020-11-30] MEDS ORDERED: Promethazine HCl 25 MG/ML VIAL SLOW IVP PRN (11:48)
[2020-11-30] MEDS ORDERED: Promethazine HCl 25 MG/ML VIAL IM PRN (11:48)
[2020-11-30] MEDS ORDERED: Morphine 2 MG/ML VIAL ONE ×3 (12:13→13:48)
[2020-11-30] MEDS ORDERED: Promethazine HCl 25 MG/ML VIAL ONE (12:13)
[2020-11-30] MEDS ORDERED: Morphine 4 MG/ML VIAL ONE (12:24)
[2020-11-30] MEDS: Clindamycin/D5W 900 MG in Premix Bag 1 BAG IVPB SCH ×2 (14:48→22:55)
[2020-11-30] MEDS ORDERED: ALPRAZolam 1 MG TAB PO PRN (15:56)
[2020-11-30] MEDS ORDERED: hydrOXYzine 25 MG TAB PO PRN (15:56)
[2020-11-30] MEDS ORDERED: TYLENOL WITH CODEINE PO PRN (15:56)
[2020-11-30] MEDS: Cyclobenzaprine 10 MG TAB PO PRN (17:27)
[2020-11-30] MEDS: Nicotine 14 MG PATCH TD SCH (17:36)
[2020-11-30] MEDS ORDERED: Acetaminophen/Codeine 30-300mg Tablet PO PRN (20:03)
[2020-11-30] MEDS: Allopurinol 300 MG TAB PO SCH (20:32)
[2020-11-30] MEDS: Hydroxychloroquine Sulfate 200 MG TAB PO SCH (20:32)
[2020-11-30] MEDS: DULoxetine 30 MG CAP PO SCH (20:32)
[2020-11-30] MEDS: traZODone HCl 50 MG TAB PO SCH (20:32)
[2020-11-30] MEDS: Acetaminophen/Codeine 30-300mg Tablet PO PRN (20:33)
[2020-11-30] MEDS: traMADol HCl 50 MG TAB PO PRN (23:02)
[2020-12-01] MEDS: Acetaminophen/Codeine 30-300mg Tablet PO PRN ×3 (04:19→18:38)
[2020-12-01] MEDS: Cyclobenzaprine 10 MG TAB PO PRN ×3 (04:19→20:01)
[2020-12-01 05:19] LABS: #Basophils 0.1 thou/uL (0.0-0.2); #Eosinphils 0.3 thou/uL (0.0-0.7); #Lymphocytes 3.3 thou/uL (1.20-3.40); %Basophils 0.8 % (0.0-1.0); %Eosinophils 2.7 % (0.0-10.0); %Lymphocytes 34.4 % (21.0-51.0); %Neutrophils 52.1 % (42.0-75.0); Hemoglobin 13.8 g/dL (12.0-16.0); Mean Corpuscular HGB CONC 32.6 g/dL (32.0-36.0); Mean Corpuscular Hemoglobin 32.4 pg (27.0-31.0); Mean Corpuscular Volume 99.4 fL (78.0-98.0); Mean Platelet Volume 7.8 fL (7.4-10.4); Platelet Count 199 thou/uL (130-400); RBC Distribution Width 12.3 % (11.5-14.5); Red Blood Cell (RBC) Count 4.27 mill/uL (4.20-5.40); White Blood Cell (WBC) Count 9.6 thou/uL (4.8-10.8)
[2020-12-01 05:52] LABS: Anion Gap 15 mmol/L (10-20); BUN (Urea Nitrogen) 16 mg/dL (9.8-20.1); Calc. Creatinine Clearance 160 mL/min (70-130); Calcium 9.2 mg/dL (7.8-10.44); Carbon Dioxide 25 mmol/L (22-29); Chloride 101 mmol/L (98-107); Glucose 104 mg/dL (70-105); Magnesium 1.7 mg/dL (1.6-2.6); Phosphorus 4.5 mg/dL (2.3-4.7); Potassium 4.4 mmol/L (3.5-5.1); Sodium 137 mmol/L (136-145)
[2020-12-01] MEDS: Acetaminophen 500 MG TAB PO SCH ×4 (05:59→23:26)
[2020-12-01] MEDS: traMADol HCl 50 MG TAB PO SCH ×4 (05:59→23:25)
[2020-12-01] MEDS: Polyethylene Glycol 3350 17 GM Packet PO SCH (10:29)
[2020-12-01] MEDS: Senokot S 8.6-50 MG TAB PO SCH ×2 (10:30→21:54)
[2020-12-01] MEDS: Famotidine 20 MG TAB PO SCH ×2 (10:30→21:54)
[2020-12-01] MEDS: Allopurinol 300 MG TAB PO SCH ×2 (10:30→21:54)
[2020-12-01] MEDS: Hydroxychloroquine Sulfate 200 MG TAB PO SCH ×2 (10:30→22:05)
[2020-12-01] MEDS: DULoxetine 30 MG CAP PO SCH ×2 (10:32→21:54)
[2020-12-01] MEDS: traMADol HCl 50 MG TAB PO PRN (15:11)
[2020-12-01] MEDS: Nicotine 14 MG PATCH TD SCH (17:40)
[2020-12-01] MEDS: traZODone HCl 50 MG TAB PO SCH (21:53)
[2020-12-02] MEDS: traMADol HCl 50 MG TAB PO PRN ×2 (03:04→10:13)
[2020-12-02] MEDS: Acetaminophen 500 MG TAB PO SCH ×3 (05:16→18:25)
[2020-12-02] MEDS: traMADol HCl 50 MG TAB PO SCH ×3 (05:17→17:34)
[2020-12-02] MEDS: Hydroxychloroquine Sulfate 200 MG TAB PO SCH ×2 (10:19→21:01)
[2020-12-02] MEDS: Famotidine 20 MG TAB PO SCH ×2 (10:19→21:01)
[2020-12-02] MEDS: DULoxetine 30 MG CAP PO SCH ×2 (10:19→21:01)
[2020-12-02] MEDS: Senokot S 8.6-50 MG TAB PO SCH ×2 (10:19→21:02)
[2020-12-02] MEDS: Polyethylene Glycol 3350 17 GM Packet PO SCH (10:20)
[2020-12-02] MEDS: Allopurinol 300 MG TAB PO SCH ×2 (10:20→21:01)
[2020-12-02] MEDS: Acetaminophen/Codeine 30-300mg Tablet PO PRN ×2 (12:02→17:35)
[2020-12-02] MEDS: Nicotine 14 MG PATCH TD SCH (17:36)
[2020-12-02] MEDS: traZODone HCl 50 MG TAB PO SCH (21:01)
[2020-12-03] MEDS: traMADol HCl 50 MG TAB PO SCH ×4 (01:53→16:59)
[2020-12-03] MEDS: Acetaminophen 500 MG TAB PO SCH ×4 (01:54→17:32)
[2020-12-03] MEDS: Simethicone Chewable 80 MG TAB PO PRN ×2 (01:55→20:52)
[2020-12-03] MEDS: DULoxetine 30 MG CAP PO SCH ×2 (08:51→20:46)
[2020-12-03] MEDS: Famotidine 20 MG TAB PO SCH ×2 (08:51→20:47)
[2020-12-03] MEDS: Allopurinol 300 MG TAB PO SCH ×2 (08:51→20:47)
[2020-12-03] MEDS: Hydroxychloroquine Sulfate 200 MG TAB PO SCH ×2 (08:51→20:46)
[2020-12-03] MEDS: Polyethylene Glycol 3350 17 GM Packet PO SCH (08:51)
[2020-12-03] MEDS: Acetaminophen/Codeine 30-300mg Tablet PO PRN ×2 (08:51→15:04)
[2020-12-03] MEDS: Senokot S 8.6-50 MG TAB PO SCH ×2 (08:51→20:47)
[2020-12-03] MEDS: Cyclobenzaprine 10 MG TAB PO PRN (11:13)
[2020-12-03] MEDS: PHENTERMINE HCL 37.5 MG PO SCH (14:36)
[2020-12-03] MEDS: Nicotine 14 MG PATCH TD SCH (16:59)
[2020-12-03] MEDS: traZODone HCl 50 MG TAB PO SCH (20:47)
[2020-12-04] MEDS: traMADol HCl 50 MG TAB PO SCH ×3 (00:21→13:37)
[2020-12-04] MEDS: Acetaminophen 500 MG TAB PO SCH ×3 (00:21→11:17)
[2020-12-04] MEDS: Famotidine 20 MG TAB PO SCH (09:03)
[2020-12-04] MEDS: Hydroxychloroquine Sulfate 200 MG TAB PO SCH (09:03)
[2020-12-04] MEDS: Senokot S 8.6-50 MG TAB PO SCH (09:03)
[2020-12-04] MEDS: DULoxetine 30 MG CAP PO SCH (09:03)
[2020-12-04] MEDS: Allopurinol 300 MG TAB PO SCH (09:04)
[2020-12-04] MEDS: Acetaminophen/Codeine 30-300mg Tablet PO PRN ×2 (09:04→15:14)
[2020-12-04] MEDS: Polyethylene Glycol 3350 17 GM Packet PO SCH (09:05)
[2020-12-04] MEDS: Cyclobenzaprine 10 MG TAB PO PRN (11:19)
[2020-12-04] MEDS: Nicotine 14 MG PATCH TD SCH (15:16)
[2020-12-04 15:26] VITALS: BP 109/65; TEMP 98.5
[2020-12-05] MEDS ORDERED: ADALIMUMAB 40 MG/0.4 ML SC SCH (09:00)
== END 2020-12-04 17:59 | disposition home or self-care (01) | DRG 481 ==
LOC: ERS 13:33 → SJJU 16:40
PROVIDERS: ADMIT Surgery; ATTEND Surgery
PROC: 0QS604Z Reposition Right Upper Femur with Internal Fixation Device, Open Approach (ICD-10-PCS; principal; 2020-11-30)
DX: S72.141A Displaced intertrochanteric fracture of right femur, initial encounter for closed fracture (principal); Z68.42 Body mass index [BMI] 45.0-49.9, adult; J44.9 Chronic obstructive pulmonary disease, unspecified; M79.7 Fibromyalgia; M06.9 Rheumatoid arthritis, unspecified; G25.81 Restless legs syndrome; F32.9 Major depressive disorder, single episode, unspecified; F17.210 Nicotine dependence, cigarettes, uncomplicated; E66.9 Obesity, unspecified; F41.9 Anxiety disorder, unspecified; Z20.822 Contact with and (suspected) exposure to COVID-19; W19.XXXA Unspecified fall, initial encounter; Z90.49 Acquired absence of other specified parts of digestive tract; Z90.89 Acquired absence of other organs; Z88.0 Allergy status to penicillin; Z88.2 Allergy status to sulfonamides; Z91.040 Latex allergy status
CPT/HCPCS: 36415; 71045; 76000; 80048; 80053; 83735; 84100; 85025; 87635; 94640; 96374; C1713; J2270; J2550; J2704; J3010; J3490; J7620; Q0162; U0003; U0005

== ENCOUNTER 2021-04-05 14:35 | Outpatient (CLI) | payer OTHER | END 2021-04-05 14:36 | disposition home or self-care (01) | LOC: BICCT 14:35 | PROVIDERS: ATTEND Physician Assistant Surgical | DX: Z87.81 Personal history of (healed) traumatic fracture (principal) ==

== ENCOUNTER 2021-07-21 12:16 | Emergency (ER) | payer OTHER, SELFPAY | END 2021-07-21 14:30 | disposition home or self-care (01) | LOC: ERS 12:16 | DX: B02.9 Zoster without complications (principal); R05.9 Cough, unspecified; R09.81 Nasal congestion; J44.9 Chronic obstructive pulmonary disease, unspecified; M06.9 Rheumatoid arthritis, unspecified; G25.81 Restless legs syndrome; F17.210 Nicotine dependence, cigarettes, uncomplicated; Z79.899 Other long term (current) drug therapy | CPT/HCPCS: 71045 ==

== ENCOUNTER 2024-02-23 10:57 | Outpatient (CLI) | payer OTHER | END 2024-02-23 10:58 | disposition home or self-care (01) | LOC: SCSRAD 10:57 | PROVIDERS: ATTEND Family Medicine | DX: M79.644 Pain in right finger(s) (principal); M79.641 Pain in right hand ==